=== PATIENT | male | born 1970 | race Caucasian/White ===

== ENCOUNTER 2019-03-09 20:38 | Emergency (ER) | payer OTHER ==
[~2019-03-09] VITALS: Ht 180.3 cm; Wt 72.6 kg
[2019-03-09] MEDS ORDERED: SODIUM CHLORIDE 0.9% 1,000 ML IV ONE (20:47)
[2019-03-09] MEDS ORDERED: HYDROmorphone HCL 2 MG/ML VL IV ONE ×2 (21:00→22:30)
[2019-03-09] MEDS ORDERED: ONDANSETRON HCL 4 MG/2 ML VIAL IV ONE (21:00)
[2019-03-09 21:36] LABS: Basophils # (auto) 0.1 uL; Eosinophils # (auto) 0.2 uL; Hematocrit 42.1 % (41.0-53.0); Lymphocytes # (auto) 1.8 uL; Mean Corpuscular Volume 101.8 fL (80.0-100.0); Neutrophils # (auto) 9.1 uL; White Blood Cell 12.1 10^3/uL (4.4-10.8)
[2019-03-09 21:37] LABS: Basophils % (auto) 0.5 % (0.0-2.0); Eosinophils % (auto) 1.4 % (0.0-7.0); Lymphocytes % (auto) 15.1 % (10.0-50.0); Mean Corpuscular Hemoglobin 33.9 pg (28.0-32.0); Mean Corpuscular Hgb Conc. 33.3 g/dL (32.0-36.0); Monocytes # (auto) 0.9 uL; Monocytes % (auto) 7.6 % (0.0-12.0); Neutrophils % (auto) 75.4 % (37.0-80.0); Platelet Count (auto) 223 10^3/uL (140-450); Red Blood Cells 4.14 10^6/uL (4.5-5.90); Red Cell Distribution Width 13.2 % (11.8-14.3)
[2019-03-09 21:48] LABS: INR 0.95 (0.9-1.15); Partial Thromboplastin Time 24.6 sec (23.64-32.05)
[2019-03-09 21:52] LABS: Albumin 3.7 g/dL (3.4-5.0); BUN/Creatinine Ratio 15.1; Calcium 8.8 mg/dL (8.5-10.1); Potassium 3.9 mmol/L (3.5-5.1)
[2019-03-09 21:55] LABS: Bilirubin, Total 0.5 mg/dL (0.2-1.0); Total Protein 6.4 g/dL (6.4-8.2)
[2019-03-09 23:32] VITALS: BP 113/77
== END 2019-03-09 23:46 | disposition short-term general hospital (02) ==
LOC: EDBD 20:38 → ER 20:41
DX: S92.012A Displaced fracture of body of left calcaneus, initial encounter for closed fracture (principal); S92.011A Displaced fracture of body of right calcaneus, initial encounter for closed fracture; F17.210 Nicotine dependence, cigarettes, uncomplicated; W18.39XA Other fall on same level, initial encounter; Y93.79 Activity, other specified sports and athletics; Y92.89 Other specified places as the place of occurrence of the external cause; Y99.8 Other external cause status
CPT/HCPCS: 36415; 71045; 73610; 80053; 85025; 85610; 85730; 93005; 94761; 96374; 96375; 96376; 99285; J1170; J2405; J7030